=== PATIENT | female | born 1955 | race American Indian/Alaskan Native ===

== ENCOUNTER 2016-10-07 11:01 | Outpatient (CLI) | payer MEDICARE ==
[2016-10-07] MEDS ORDERED: XYLOCAINE TOPICAL 4% TP ONE ×2 (11:32→16:00)
== END 2016-10-07 11:02 | disposition home or self-care (01) ==
LOC: WOUND 11:01
PROVIDERS: ATTEND Orthopaedic Surgery
DX: S31.829D Unspecified open wound of left buttock, subsequent encounter (principal); S31.819D Unspecified open wound of right buttock, subsequent encounter; X58.XXXD Exposure to other specified factors, subsequent encounter

== ENCOUNTER 2016-10-19 11:04 | Outpatient (CLI) | payer MEDICARE ==
[2016-10-19] MEDS ORDERED: XYLOCAINE TOPICAL 2% TP ONE ×2 (11:51→14:14)
== END 2016-10-19 11:05 | disposition home or self-care (01) ==
LOC: WOUND 11:04
PROVIDERS: ATTEND Orthopaedic Surgery
DX: S31.829D Unspecified open wound of left buttock, subsequent encounter (principal); S31.819D Unspecified open wound of right buttock, subsequent encounter; E83.59 Other disorders of calcium metabolism; X58.XXXD Exposure to other specified factors, subsequent encounter
CPT/HCPCS: 87075; 87076; 87116; 87186

== ENCOUNTER 2016-11-04 13:22 | Outpatient (CLI) | payer MEDICARE ==
[~2016-11-04 13:22] MED LIST: XYLOCAINE TOPICAL 2% ONE
[2016-11-04] MEDS ORDERED: XYLOCAINE TOPICAL 2% TP ONE (15:05)
== END 2016-11-04 13:23 | disposition home or self-care (01) ==
LOC: WOUND 13:22
PROVIDERS: ATTEND Internal Medicine
DX: S31.829D Unspecified open wound of left buttock, subsequent encounter (principal); S31.819D Unspecified open wound of right buttock, subsequent encounter; E11.9 Type 2 diabetes mellitus without complications; M05.612 Rheumatoid arthritis of left shoulder with involvement of other organs and systems; E78.2 Mixed hyperlipidemia; E83.59 Other disorders of calcium metabolism; R80.8 Other proteinuria; M32.10 Systemic lupus erythematosus, organ or system involvement unspecified; X58.XXXD Exposure to other specified factors, subsequent encounter

== ENCOUNTER 2016-12-02 10:49 | Outpatient (CLI) | payer MEDICARE ==
[~2016-12-02 10:49] MED LIST changes: -XYLOCAINE TOPICAL 2% ONE; +XYLOCAINE TOPICAL 4% TP ONE
[2016-12-02] MEDS ORDERED: XYLOCAINE TOPICAL 4% TP ONE (11:19)
== END 2016-12-02 10:50 | disposition home or self-care (01) ==
LOC: WOUND 10:49
PROVIDERS: ATTEND Internal Medicine
DX: L89.319 Pressure ulcer of right buttock, unspecified stage (principal); M32.10 Systemic lupus erythematosus, organ or system involvement unspecified; M05.612 Rheumatoid arthritis of left shoulder with involvement of other organs and systems; E78.2 Mixed hyperlipidemia

== ENCOUNTER 2017-01-13 11:07 | Outpatient (CLI) | payer MEDICARE ==
[2017-01-13] MEDS ORDERED: XYLOCAINE TOPICAL 4% TP ONE ×2 (11:53→11:55)
== END 2017-01-13 11:08 | disposition home or self-care (01) ==
LOC: WOUND 11:07
PROVIDERS: ATTEND Internal Medicine
DX: S31.819D Unspecified open wound of right buttock, subsequent encounter (principal); S31.829D Unspecified open wound of left buttock, subsequent encounter; E11.9 Type 2 diabetes mellitus without complications; M05.612 Rheumatoid arthritis of left shoulder with involvement of other organs and systems; M32.10 Systemic lupus erythematosus, organ or system involvement unspecified; E78.2 Mixed hyperlipidemia; R80.8 Other proteinuria; X58.XXXD Exposure to other specified factors, subsequent encounter

== ENCOUNTER 2017-02-10 10:55 | Outpatient (CLI) | payer MEDICARE ==
[2017-02-10] MEDS ORDERED: XYLOCAINE TOPICAL 4% TP ONE ×2 (11:32→14:26)
== END 2017-02-10 10:56 | disposition home or self-care (01) ==
LOC: WOUND 10:55
PROVIDERS: ATTEND Internal Medicine
DX: E11.622 Type 2 diabetes mellitus with other skin ulcer (principal); L98.411 Non-pressure chronic ulcer of buttock limited to breakdown of skin; M32.10 Systemic lupus erythematosus, organ or system involvement unspecified; M05.612 Rheumatoid arthritis of left shoulder with involvement of other organs and systems; E78.2 Mixed hyperlipidemia; E78.5 Hyperlipidemia, unspecified

== ENCOUNTER 2017-02-15 08:17 | Day surgery (SDC) | payer MEDICARE ==
--- NOTE | 2017-02-15 09:36 | Anesthesia Consultation ---
Anesthesia Consult and Med Hx Date of service: 02/15/17 - Airway Anesthetic Teeth Evaluation: Poor ROM Head & Neck: Inadequate (severe limited ROM due to cervial vertebrae collapse) Mental/Hyoid Distance: Adequate Mallampati Class: Class IV Intubation Access Assessment: Difficult - Pulmonary Exam CTA: Yes - Cardiac Exam Cardiac Exam: RRR - Pre-Operative Health Status ASA Pre-Surgery Classification: ASA3 Proposed Anesthetic Plan: MAC - Pulmonary Hx Smoking: No COPD: No - Cardiovascular System Hx Hypertension: Yes Hx Peripheral Vascular Disease: Yes - Central Nervous System Hx Neuromuscular Disorder: No (muscle atrophy due to vertebral collapse) CVA: No - Gastrointestinal Hx Gastroesophageal Reflux Disease: No - Endocrine Hx Non-Insulin Dependent Diabetes: Yes (on metformin) Hx Hypothyroidism: No - Hematic Hx Anemia: Yes Hx Sickle Cell Disease: No - Other Systems Hx Alcohol Use: No Hx Substance Use: No Hx Cancer: No Hx Obesity: No - Additional Comments Anesthesia Medical History Comments: Severely chacetic, limited physical motion due to vertebral collapse. Lupus, chronic pain
--- NOTE | 2017-02-15 09:37 | Anesthesia Day of Surgery ---
Anesthesia Day of Surgery - Day of Surgery Patient Examined: Yes Patient H&P Reviewed: Yes Patient is NPO: Yes Beta Blockers: No (patient vital WNL)
[2017-02-15] MEDS ORDERED: DIPRIVAN 10 MG/ML IV ONE ×2 (09:45)
--- NOTE | 2017-02-15 09:52 | Short Stay Summary ---
Short Stay Documentation Date of service: 02/15/17 Narrative H&P: 61 year old presents for high risk colon screening by virtue of family history of colon cancer and colon polyps. Previous colonoscopy was > 10 years ago. - History Principal diagnosis: family hx colon cancer and colon polyps H&P: obtained from office Past Medical History: arthritis, diabetes, hypertension, other (lupus, osteoporosis, cataracts) Past Surgical History: , Other (breast, joint replacement) - Allergies and Medications Current Medications: Allergies Penicillins Allergy (Verified 06/08/13 11:10) Unknown Home Medications Medication Instructions Recorded Confirmed Last Taken Type Atorvastatin (Nf) [Lipitor] 10 mg PO QDAY 06/08/13 03/27/15 09/19/13 History Calcium Carbonate/Vitamin D3 1 tab PO QDAY 06/08/13 03/27/15 06/08/13 09:00 History [Calcium 600 + Vit D Tablet] Metoprolol Xl [Toprol Xl] 25 mg PO QDAY 06/08/13 03/27/15 09/20/13 09:00 History 25 MG Prednisone 15 mg PO QDAY 06/08/13 03/27/15 09/19/13 History metFORMIN [Glucophage] 500 mg PO QDAY 06/08/13 03/27/15 09/19/13 History Naproxen Sodium [Aleve] 440 mg PO DAILY PRN 09/18/13 03/27/15 09/18/13 History [place]-3 Fatty Acids/Fish Oil [Hm 1 cap PO DAILY 09/18/13 03/27/15 09/19/13 History Fish Oil 1,200 mg Softgel] azaTHIOprine [Imuran] 1 tab PO DAILY 03/27/15 03/27/15 Unknown History Oxycodone HCl/Acetaminophen 1 each PO Q6HR PRN #20 tablet 09/15/15 Unknown Rx [Percocet 10/325 mg] Active Medications Sodium Chloride (Nacl 0.9% 1000 Ml) 1,000 mls @ 50 mls/hr IV DIRECT ROSS - Physical exam General appearance: well-nourished, other (chronically ill, older than her stated age, no acute distress) Integumentary: other (perirectal ulceration) HEENT: PERRLA, EOMI Heart: Regular rate, Normal S1, Normal S2 Gastrointestinal: normal, no tenderness, no distended, no masses, no hepatomegaly, no splenomegaly, no obese Extremities: No edema (except for right upper extremity lymphedema) Neurological: Normal speech - Hospital course Hospital course: Uneventful colonoscopy. - Disposition Condition at discharge: Good Disposition: DISCHARGED TO HOME OR SELFCARE - Discharge Diagnoses (1) Family history of colon cancer Status: Chronic (2) Family history of colonic polyps Status: Chronic (3) Diverticulosis Status: Chronic Qualifiers: Diverticulosis site: D Diverticulosis bleeding: D Short Stay Discharge Plan Activity: other (no driving today) Diet: regular Additional Instructions: 1. Repeat colonoscopy in 5 years for high risk screening. 2. Continue follow up with your career transition specialist(s). Follow up with: JACKSON HALL MD [Primary Care Provider] - 7 Days
[2017-02-15] MEDS ORDERED: NACL 0.9% 1000 ML 1,000 ML IV SCH (10:00)
[2017-02-15] MEDS ORDERED: WATER FOR IRRIG STERILE IR ONE (10:27)
[2017-02-15] MEDS ORDERED: XYLOCAINE MPF 2% ONE (10:30)
[2017-02-15] MEDS ORDERED: NEO SYNEPHRINE/NS Syringe(OR USE) IV ONE (10:30)
--- NOTE | 2017-02-15 10:34 | Anesthesia Consultation ---
Anesthesia Consult and Med Hx Date of service: 02/15/17 - Airway Anesthetic Teeth Evaluation: Poor ROM Head & Neck: Inadequate Mental/Hyoid Distance: Inadequate Mallampati Class: Class IV Intubation Access Assessment: Difficult - Pulmonary Exam CTA: Yes - Cardiac Exam Cardiac Exam: RRR - Pre-Operative Health Status ASA Pre-Surgery Classification: ASA3 Proposed Anesthetic Plan: MAC - Pulmonary Hx Smoking: No - Cardiovascular System Hx Hypertension: Yes - Central Nervous System Hx Neuromuscular Disorder: No (muscle atrophy due to vertebral collapse) Hx Back Pain: Yes (severe with limited mobility) Hx Psychiatric Problems: No - Gastrointestinal Hx Gastroesophageal Reflux Disease: No - Endocrine Hx Non-Insulin Dependent Diabetes: Yes (on metformin) - Hematic Hx Anemia: Yes Hx Sickle Cell Disease: No - Other Systems Hx Alcohol Use: No Hx Substance Use: No Hx Cancer: No Hx Obesity: No - Additional Comments Anesthesia Medical History Comments: Lupus. Severe chacetic BMI 19.5 with severe muscle atrophy. 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 Limited overall physical mobility due to vertebral collapse
--- NOTE | 2017-02-15 10:40 | Anesthesia Day of Surgery ---
Anesthesia Day of Surgery - Day of Surgery Patient Examined: Yes Patient H&P Reviewed: Yes Patient is NPO: Yes Beta Blockers: No (vitals WNL)
--- NOTE | 2017-02-15 11:21 | Operative Report ---
Operative Report Operative Report: Date of procedure: 02/15/2017 Preprocedure diagnosis: High-risk colon screening by virtue of family history of colon cancer and family history of colon polyps Post procedure diagnosis: Diverticulosis Procedure name(s): Colonoscopy Surgeon: Tavon Navarrete MD Anesthesia: Monitored anesthesia care EBL: None Procedure: The indications, techniques, potential complications and alternatives , had been discussed in full detail prior to the date of the exam, and once again on the day of the exam. Questions were encouraged and answered, and consent was thereby obtained. The patient was placed in the left lateral decubitus position, and was medicated by anesthesia services. See the anesthesia records for details. The anal sphincter was digitally dilated. The digital exam was unremarkable. However to perianal cutaneous ulcerations were noted, the lateral of which suggested possible fistula however with no visible drainage. The tip of a [employer] video colonoscope was inserted through the anal sphincter and into the rectal vault. It was advanced proximally under continuous visualization of the lumen to the cecum without difficulty. The prep was fair. Fairly continuous lavage and suctioning were required to improve mucosal visibility which overall was felt to be adequate. No pathology was found in the cecum. The appendiceal orifice and ileocecal valve appeared normal. From the cecum, the instrument was slowly withdrawn with careful circumferential examination of the colonic mucosa. No pathology was found in the ascending colon, hepatic flexure, transverse colon, splenic flexure or descending colon. A few diverticula were seen scattered throughout the sigmoid. No neoplastic lesions were seen. The rectum appeared normal from forward and retroflexed views. The instrument was fully withdrawn. The procedure was well-tolerated. She was then monitored in the recovery area the GI lab to ensure stability prior to her release. See the outpatient record for details regarding instructions to patient, medications and plans for follow-up. Final diagnosis: 1. Sigmoid diverticulosis 2. Otherwise normal colonoscopy within limitations of the prep 3. Perianal cutaneous ulcers Colon screening information: Previous colonoscopy over 10 years ago, next colonoscopy in 5 years Tavon Navarrete M.D. Dictated by 2016 at 11:17 AM
[2017-02-15 11:41] VITALS: BP 110/59
--- NOTE | 2017-02-15 12:13 | Post Anesthesia Evaluation ---
- Post Anesthesia Evaluation Patient Participated: Yes Airway Patent: Yes Stable Respiratory Function: Yes Nausea/Vomiting: No Temp > 96.8F: Yes Pain Manageable: Yes Adequeate Hydration: Yes Anesthesia Complications: No Block Receding Appropriately: Not Applicable Patient on Ventilator: No
[2017-02-16] MEDS ORDERED: XYLOCAINE MPF 2% ONE (13:19)
[2017-02-16] MEDS ORDERED: NEO SYNEPHRINE ONE (13:19)
== END 2017-02-15 08:18 | disposition home or self-care (01) ==
LOC: GIO 08:17
PROVIDERS: ATTEND Internal Medicine Gastroenterology
DX: Z12.11 Encounter for screening for malignant neoplasm of colon (principal); K57.30 Diverticulosis of large intestine without perforation or abscess without bleeding; K62.6 Ulcer of anus and rectum; M19.90 Unspecified osteoarthritis, unspecified site; I10 Essential (primary) hypertension; E11.9 Type 2 diabetes mellitus without complications; D64.9 Anemia, unspecified; M81.0 Age-related osteoporosis without current pathological fracture; Z79.899 Other long term (current) drug therapy; Z79.84 Long term (current) use of oral hypoglycemic drugs; Z83.71 Family history of colonic polyps; Z80.0 Family history of malignant neoplasm of digestive organs
CPT/HCPCS: 82962; G0105; J2370; J2704

== ENCOUNTER 2017-02-24 11:10 | Outpatient (CLI) | payer MEDICARE ==
[2017-02-24] MEDS ORDERED: XYLOCAINE TOPICAL 4% TP ONE ×2 (12:00→13:00)
== END 2017-02-24 11:11 | disposition home or self-care (01) ==
LOC: WOUND 11:10
PROVIDERS: ATTEND Surgery
DX: E11.622 Type 2 diabetes mellitus with other skin ulcer (principal); L97.811 Non-pressure chronic ulcer of other part of right lower leg limited to breakdown of skin; L98.411 Non-pressure chronic ulcer of buttock limited to breakdown of skin; L97.821 Non-pressure chronic ulcer of other part of left lower leg limited to breakdown of skin; M06.9 Rheumatoid arthritis, unspecified; E78.5 Hyperlipidemia, unspecified; I89.0 Lymphedema, not elsewhere classified

== ENCOUNTER 2017-03-25 13:55 | Outpatient (CLI) | payer MEDICARE ==
[2017-03-25] MEDS ORDERED: XYLOCAINE TOPICAL 4% TP ONE ×3 (14:11→15:04)
== END 2017-03-25 13:56 | disposition home or self-care (01) ==
LOC: WOUND 13:55
PROVIDERS: ATTEND Nurse Practitioner
DX: E11.622 Type 2 diabetes mellitus with other skin ulcer (principal); L97.811 Non-pressure chronic ulcer of other part of right lower leg limited to breakdown of skin; L98.491 Non-pressure chronic ulcer of skin of other sites limited to breakdown of skin; M32.10 Systemic lupus erythematosus, organ or system involvement unspecified; E78.2 Mixed hyperlipidemia; M06.9 Rheumatoid arthritis, unspecified

== ENCOUNTER 2017-03-29 13:21 | Outpatient (CLI) | payer MEDICARE ==
[2017-03-29 15:16] LABS: Blood Urea Nitrogen 24 mg/dL (7-17)
--- NOTE | 2017-03-30 09:26 | Magnetic Resonance Report ---
MRI PELVIS WITH AND WITHOUT CONTRAST History: Pelvic pain, right ischial wound. Technique: Multisequence, multiplanar MRI before and after IV gadolinium. Findings: There are no relevant comparison exams at this facility. This examination is severely limited secondary to susceptibility artifact from bilateral hip replacements. There is a soft tissue wound extending from the right gluteal region toward the ischium which measures approximately 4 x 5 x 3 cm in dimensions. There is no obvious abscess. Although this exam is severely limited, there is no obvious bone marrow edema, T1 changes or abnormal enhancement in the right ischial bone. No obvious findings of osteomyelitis. If further evaluation for osteomyelitis is needed, triple phase bone scan may prove useful. Bilateral hip replacements appear intact. No pelvic mass or fracture. The pelvic viscera are within normal limits. Impression: Severely limited exam secondary to susceptibility artifact from bilateral hip replacements. A soft tissue wound is noted in the right ischial region extending to the right ischial bone but there is no convincing evidence for abscess or osteomyelitis. See above.
== END 2017-03-29 13:22 | disposition home or self-care (01) ==
LOC: MRI 13:21
PROVIDERS: ATTEND Surgery
DX: S70.921A Unspecified superficial injury of right thigh, initial encounter (principal); E11.9 Type 2 diabetes mellitus without complications; I10 Essential (primary) hypertension; E78.00 Pure hypercholesterolemia, unspecified; M06.9 Rheumatoid arthritis, unspecified; D64.9 Anemia, unspecified; Z79.84 Long term (current) use of oral hypoglycemic drugs; Z79.899 Other long term (current) drug therapy; X58.XXXA Exposure to other specified factors, initial encounter; Y93.89 Activity, other specified; Y92.89 Other specified places as the place of occurrence of the external cause; Y99.8 Other external cause status
CPT/HCPCS: 36415; 72197; 82565; 83036; 84520; A9577

== ENCOUNTER 2017-03-30 13:48 | Outpatient (CLI) | payer MEDICARE ==
[2017-03-30] MEDS ORDERED: XYLOCAINE TOPICAL 4% TP ONE ×2 (13:57→13:58)
== END 2017-03-30 13:49 | disposition home or self-care (01) ==
LOC: WOUND 13:48
PROVIDERS: ATTEND Surgery
DX: E11.622 Type 2 diabetes mellitus with other skin ulcer (principal); L97.811 Non-pressure chronic ulcer of other part of right lower leg limited to breakdown of skin; E11.621 Type 2 diabetes mellitus with foot ulcer; L97.511 Non-pressure chronic ulcer of other part of right foot limited to breakdown of skin; L89.152 Pressure ulcer of sacral region, stage 2; S31.819D Unspecified open wound of right buttock, subsequent encounter; M06.9 Rheumatoid arthritis, unspecified; E78.5 Hyperlipidemia, unspecified; X58.XXXD Exposure to other specified factors, subsequent encounter

== ENCOUNTER 2017-04-07 11:09 | Outpatient (CLI) | payer MEDICARE ==
[2017-04-07] MEDS ORDERED: XYLOCAINE TOPICAL 4% TP ONE ×2 (13:04→13:16)
== END 2017-04-07 11:10 | disposition home or self-care (01) ==
LOC: WOUND 11:09
PROVIDERS: ATTEND Surgery
DX: E11.621 Type 2 diabetes mellitus with foot ulcer (principal); L97.511 Non-pressure chronic ulcer of other part of right foot limited to breakdown of skin; E11.622 Type 2 diabetes mellitus with other skin ulcer; L98.491 Non-pressure chronic ulcer of skin of other sites limited to breakdown of skin; L89.152 Pressure ulcer of sacral region, stage 2; M06.9 Rheumatoid arthritis, unspecified; E78.5 Hyperlipidemia, unspecified
CPT/HCPCS: 97605

== ENCOUNTER 2017-04-13 11:08 | Outpatient (CLI) | payer MEDICARE ==
[2017-04-13] MEDS ORDERED: XYLOCAINE TOPICAL 4% TP ONE ×2 (11:51→12:02)
[2017-04-13] MEDS ORDERED: XYLOCAINE 1%/ EPI 1:100,000 INFILTRATI ONE ×2 (11:57→11:59)
[2017-04-13] MEDS ORDERED: SILVER NITRATE TP ONE ×2 (12:40→14:29)
== END 2017-04-13 11:09 | disposition home or self-care (01) ==
LOC: WOUND 11:08
PROVIDERS: ATTEND Surgery
DX: E11.622 Type 2 diabetes mellitus with other skin ulcer (principal); L97.811 Non-pressure chronic ulcer of other part of right lower leg limited to breakdown of skin; E11.621 Type 2 diabetes mellitus with foot ulcer; L97.511 Non-pressure chronic ulcer of other part of right foot limited to breakdown of skin; L98.491 Non-pressure chronic ulcer of skin of other sites limited to breakdown of skin; L89.152 Pressure ulcer of sacral region, stage 2; M06.9 Rheumatoid arthritis, unspecified; E78.5 Hyperlipidemia, unspecified

== ENCOUNTER 2017-04-13 13:30 | Outpatient (CLI) | payer MEDICARE ==
--- NOTE | 2017-04-14 10:27 | Vascular Lab Report ---
LOWER EXTREMITY ARTERIAL DUPLEX: REASON FOR EXAM: Right foot ulcer. COMMENTS ON THE RIGHT: Biphasic waveforms are seen proximally. Biphasic waveforms are seen distally. No significant velocity gradients are identified. Scattered calcified plaque noted throughout the extremity.. Findings are consistent with normal perfusion. Findings are consistent with the ability to heal distal wounds. IMPRESSION: RIGHT: Essentially normal arterial flow.
== END 2017-04-13 13:31 | disposition home or self-care (01) ==
LOC: VAS 13:30
PROVIDERS: ATTEND Surgery
DX: E11.621 Type 2 diabetes mellitus with foot ulcer (principal); L97.519 Non-pressure chronic ulcer of other part of right foot with unspecified severity; I10 Essential (primary) hypertension; E78.00 Pure hypercholesterolemia, unspecified; D64.9 Anemia, unspecified; M06.9 Rheumatoid arthritis, unspecified